=== PATIENT | male | born 1990 | race African-American/Black ===

== ENCOUNTER 2017-08-06 20:05 | Emergency (ER) | payer OTHER ==
[~2017-08-06] VITALS: Ht 180.3 cm; Wt 69.0 kg
[~2017-08-06 20:05] MED LIST: ZOFRAN ODT4 MG PO
[2017-08-06 20:07] VITALS: BP 109/70
== END 2017-08-06 20:57 | disposition home or self-care (01) ==
LOC: ER 20:05
DX: J02.0 Streptococcal pharyngitis (principal); F10.99 Alcohol use, unspecified with unspecified alcohol-induced disorder; Z91.013 Allergy to seafood

== ENCOUNTER 2020-01-08 18:48 | Emergency (ER) | payer OTHER ==
[~2020-01-08] VITALS: Ht 180.3 cm; Wt 72.1 kg
[2020-01-08 20:09] VITALS: BP 111/74
== END 2020-01-08 20:09 | disposition home or self-care (01) ==
LOC: ER 18:48
DX: R05 Cough (principal); R50.9 Fever, unspecified; Z03.818 Encounter for observation for suspected exposure to other biological agents ruled out; Z91.013 Allergy to seafood

== ENCOUNTER 2020-04-16 17:53 | Emergency (ER) | payer OTHER ==
[~2020-04-16] VITALS: Ht 180.3 cm; Wt 69.4 kg
[2020-04-16 18:07] LABS: URINE BILIRUBIN NEGATIVE (Negative); URINE BLOOD NEGATIVE (Negative); URINE CLARITY CLEAR; URINE COLOR YELLOW; URINE GLUCOSE-RANDOM* NEGATIVE (Negative); URINE KETONES NEGATIVE (Negative); URINE LEUKOCYTES-REFLEX NEGATIVE (Negative); URINE NITRITE-REFLEX NEGATIVE (Negative); URINE PROTEIN (DIPSTICK) NEGATIVE (Negative)
[2020-04-16 18:09] LABS: BASOPHILS 0.8 % (0.0-2.0); EOSINOPHILS 4.7 % (0.0-3.0); HEMATOCRIT 45.1 % (42.0-52.0); HEMOGLOBIN 14.9 gm/dL (14.0-18.0); LYMPHOCYTES 34.8 % (24.0-44.0); MCH 30.7 pg (26.0-34.0); MCHC 33.1 g/dL (28.0-37.0); MCV 92.7 fL (80.0-100.0); MONOCYTES 7.8 % (1.0-8.0); PLATELET COUNT 230 thou/uL (150-400); POLYS 51.9 % (36.0-66.0); RBC 4.86 mil/uL (4.50-6.00); RDW 12.8 % (10.5-14.5); WBC 3.9 thou/uL (4.0-11.0)
[2020-04-16 18:18] LABS: CALCIUM 9.4 mg/dL (8.5-10.1); CREATININE 1.5 mg/dL (0.7-1.3); POTASSIUM 3.6 mmol/L (3.5-5.1)
[2020-04-16 18:24] LABS: ALBUMIN 4.4 g/dL (3.4-5.0); TOTAL BILIRUBIN 0.8 mg/dL (0.2-1.0); TOTAL PROTEIN 8.3 g/dL (6.4-8.2)
[2020-04-16] MEDS ORDERED: CYCLOBENZAPRINE5 MG PO (19:13)
[2020-04-16 19:17] VITALS: BP 109/62
== END 2020-04-16 19:33 | disposition home or self-care (01) ==
LOC: ER 17:53
PROVIDERS: Emergency Medicine
DX: M54.5 Low back pain (principal); R19.7 Diarrhea, unspecified; R10.30 Lower abdominal pain, unspecified; Z98.890 Other specified postprocedural states; Z91.013 Allergy to seafood

== ENCOUNTER 2021-06-01 12:43 | Emergency (ER) | payer OTHER ==
[~2021-06-01] VITALS: Ht 180.3 cm; Wt 73.0 kg
[~2021-06-01 12:43] MED LIST changes: +CYCLOBENZAPRINE5 MG PO
[2021-06-01] MEDS ORDERED: ZOFRAN ODT4 MG PO (13:30)
[2021-06-01 14:27] VITALS: BP 104/63
--- NOTE | 2021-06-02 06:12 | NUR ---
([phone]) MESSAGE LEFT IN AN ATTEMPT TO NOTIFY PATIENT OF POSITIVE COVID RESULTS
--- NOTE | 2021-06-02 06:41 | NUR ---
PATIENT RETURNED CALL AT [id number]. POSITIVE RESULTS PROVIDED.
== END 2021-06-01 14:28 | disposition home or self-care (01) ==
LOC: ER 12:43
PROVIDERS: Emergency Medicine
DX: R11.10 Vomiting, unspecified (principal); Z20.822 Contact with and (suspected) exposure to COVID-19; Z91.013 Allergy to seafood